=== PATIENT | male | born 1975 | race Caucasian/White ===

== ENCOUNTER 2017-11-02 16:30 | Emergency (ER) | payer BC ==
[~2017-11-02] VITALS: Ht 170.2 cm; Wt 100.0 kg
[2017-11-02 17:18] VITALS: BP 130/97
[2017-11-02] MEDS ORDERED: PredniSONE 20 MG TABLET PO ONE (17:30)
[2017-11-02] MEDS ORDERED: KETOROLAC TROMETHAMINE 60 MG/2 ML VIAL IM ONE (17:30)
[2017-11-02] MEDS ORDERED: DIAZEPAM 5 MG TABLET PO ONE (17:30)
== END 2017-11-02 18:06 | disposition home or self-care (01) ==
LOC: EMS 16:31
DX: M54.41 Lumbago with sciatica, right side (principal); M54.16 Radiculopathy, lumbar region; F17.210 Nicotine dependence, cigarettes, uncomplicated
CPT/HCPCS: 96372; 99283; J1885; J7512